=== PATIENT | male | born 1945 | race African-American/Black ===

== ENCOUNTER 2017-10-10 09:05 | Outpatient (CLI) | payer MEDICARE ==
--- NOTE | 2017-10-10 15:39 | Cat Scan Report ---
FINAL REPORT EXAM: CT ABDOMEN PELVIS WO CON HISTORY: WEIGHT LOSS TECHNIQUE: CT examination of the ABDOMEN without IV contrast CT examination of the PELVIS without IV contrast PRIORS: Chest CT 10/10/2017 FINDINGS: Large right and moderate left pleural effusions layer posteriorly. Slight compressive atelectasis in both lung bases. Degenerative changes in the regional skeleton. Normal noncontrast appearance of the liver, gallbladder, adrenals, pancreas, and spleen. Slight fusiform aneurysm of the distal abdominal aorta with maximum 2.7 cm diameter.Moderate calcified atherosclerotic plaque in the aorta and its branches. Normal caliber IVC. Normal-appearing kidneys and visible ureteral segments. Very small fat containing umbilical hernia. No retroperitoneal adenopathy. No evidence of mesenteric mass. Normal-appearing stomach and duodenum. No small bowel distention in the abdomen and pelvis. No pelvic free fluid. Normal-appearing decompressed urinary bladder, prostate, and seminal vesicles. Normal-appearing rectum. No gross ascites, free air, or colonic distention. Normal-appearing cecum, terminal ileum, and appendix. Slight descending and sigmoid diverticulosis without CT evidence of diverticulitis. Slight diverticulosis also scattered in the ascending and transverse colon. IMPRESSION: Large right and moderate left pleural effusions with adjacent minimal lower lobe atelectasis Distal abdominal aortic aneurysm with 2.7 cm diameter Multifocal diverticulosis without CT evidence of diverticulitis
--- NOTE | 2017-10-10 15:55 | Cat Scan Report ---
FINAL REPORT EXAM: CT CHEST WO CON HISTORY: WEIGHT LOSS TECHNIQUE: CT examination of the chest without IV contrast PRIORS: AP CT 10/10/2017 FINDINGS: Large right and moderate left pleural effusions layer posteriorly. There is minimal compressive atelectasis in both lung bases. Slight cardiomegaly and moderate to large pericardial effusion. Coronary artery calcification. 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 Moderate calcified atherosclerotic plaque in the aorta. Normal-appearing esophagus. No hilar mass or mediastinal adenopathy. Calcification within mediastinal lymph nodes may be granulomatous. Calcified granulomas also noted in the hilum bilaterally. No evidence of pneumothorax. No lung mass or nodule. 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
== END 2017-10-10 09:06 | disposition home or self-care (01) ==
LOC: CT 09:05
PROVIDERS: ATTEND Family Medicine
DX: J84.10 Pulmonary fibrosis, unspecified (principal); R91.8 Other nonspecific abnormal finding of lung field; R63.4 Abnormal weight loss; J90 Pleural effusion, not elsewhere classified; I51.7 Cardiomegaly; I31.3 Pericardial effusion (noninflammatory); I25.10 Atherosclerotic heart disease of native coronary artery without angina pectoris; J98.11 Atelectasis; I71.4 Abdominal aortic aneurysm, without rupture; K42.9 Umbilical hernia without obstruction or gangrene; K57.30 Diverticulosis of large intestine without perforation or abscess without bleeding
CPT/HCPCS: 36415; 71250; 74176; 82565; 84520